=== PATIENT | male | born 1930 | race Caucasian/White ===

== ENCOUNTER 2017-02-06 07:24 | Emergency (ER) | payer MEDICARE, BC ==
--- NOTE | 2017-02-06 07:50 | EDM.PDOC ---
<Holli Narayan - Last Filed: 02/06/17 07:45> ED HPI GENERAL MEDICAL PROBLEM - General Stated Complaint: CAN'T URINATE Time Seen by Provider: 02/06/17 07:45 Source of Information: Reports: Patient, Family (daughter) - History of Present Illness INITIAL COMMENTS - FREE TEXT/NARRATIVE: Daughter states that he was started on torsemide last week and has been urinating frequently until last evening he started having difficulty going and then started complaining of burning with urination. During the night he wasn't able to empty his bladder at all and this morning he has pressure across the lower abdomen. No fever or chills noted during the night. No nausea or diarrhea with it. Onset: Gradual Location: Reports: Abdomen Associated Symptoms: Denies: Cough, Nausea/Vomiting, Shortness of Breath - Related Data Allergies Allergy/AdvReac Type Severity Reaction Status Date / Time No Known Allergies Allergy Verified 02/06/17 07:58 Home Meds: Home Meds Allopurinol [Zyloprim] 300 mg PO DAILY 02/06/17 [History] Atenolol 50 mg PO DAILY 02/06/17 [History] Cefuroxime [Ceftin] 250 mg PO BID #14 tablet 02/06/17 [Rx] Tamsulosin [Flomax] 0.8 cap PO DAILY 02/06/17 [History] Torsemide 20 mg PO DAILY 02/06/17 [History] atorvaSTATin [Lipitor] 10 mg PO BEDTIME 02/06/17 [History] Past Medical History Cardiovascular History: Reports: Heart Failure, Heart Murmur, High Cholesterol, Hypertension Genitourinary History: Reports: Retention, Urinary Musculoskeletal History: Reports: Gout Neurological History: Reports: CVA - Past Surgical History HEENT Surgical History: Reports: Cataract Surgery Dermatological Surgical History: Reports: Other (See Below) (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) Social & Family History - Tobacco Use Smoking Status *Q: Former Smoker - Living Situation & Occupation Living situation: Reports: , with Spouse, with Family Occupation: Retired ED ROS GENERAL - Review of Systems Review Of Systems: See Below Constitutional: Denies: Fever, Chills HEENT: Reports: No Symptoms Respiratory: Reports: No Symptoms Cardiovascular: Reports: No Symptoms GI/Abdominal: Denies: Constipation, Diarrhea, Nausea : Reports: Dysuria, Pain, Urinary Retention Musculoskeletal: Reports: No Symptoms Skin: Denies: Rash Neurological: Reports: No Symptoms ED EXAM, RENAL/ - Physical Exam Exam: See Below Exam Limited By: No Limitations General Appearance: Alert, WD/WN, No Apparent Distress Ears: Normal External Exam, Normal Canal Nose: Normal Inspection Throat/Mouth: Normal Inspection, Normal Oropharynx, No Airway Compromise Head: Atraumatic, Normocephalic Neck: Normal Inspection, Supple, Non-Tender, Full Range of Motion Respiratory/Chest: No Respiratory Distress, Lungs Clear, Normal Breath Sounds Cardiovascular: Regular Rate, Rhythm, No Edema, Systolic Murmur GI/Abdominal: Normal Bowel Sounds, Soft, Non-Tender, No Organomegaly Extremities: Normal Inspection, Normal Range of Motion, Non-Tender, No Pedal Edema, Normal Capillary Refill Neurological: Alert, Oriented Skin Exam: Warm, Dry, Intact Course - Vital Signs Last Recorded V/S: Last Vital Signs Temp 98.3 F 02/06/17 07:30 Pulse 77 02/06/17 07:30 Resp 20 02/06/17 07:30 BP 156/92 H 02/06/17 07:30 Pulse Ox 96 02/06/17 07:30 - Orders/Labs/Meds Labs: Laboratory Tests 02/06/17 02/06/17 02/06/17 Range/Units 07:55 07:55 08:12 WBC 12.6 H (5.0-10.0) 10^3/uL RBC 4.85 (4.50-6.00) 10^6/uL Hgb 15.1 (14.0-18.0) g/dL Hct 46.1 (40.0-54.0) % MCV 95.1 H (82.0-94.0) fL MCH 31.1 (27.0-32.0) pg MCHC 32.8 L (33.0-38.0) g/dL RDW Coeff of Alicia 13.8 (11.0-15.0) % Plt Count 217 (150-400) 10^3/uL Neut % (Auto) 59.6 (35-85) % Lymph % (Auto) 29.3 (10-55) % [place] % (Auto) 9.7 (0-16) % Eos % (Auto) 1.2 (0-5) % Baso % (Auto) 0.2 (0-3) % Neut # (Auto) 7.49 H (1.80-7.00) 10^3/uL Lymph # (Auto) 3.68 (1.00-4.80) 10^3/uL [place] # (Auto) 1.22 H (0.00-0.80) 10^3/uL Eos # (Auto) 0.15 (0.00-0.45) 10^3/uL Baso # (Auto) 0.03 10^3/uL Sodium 144 (136-145) mEq/L Potassium 3.7 (3.5-5.0) mEq/L Chloride 106 (98-106) mEq/L Carbon Dioxide 28 (21-32) mmol/L BUN 29 H (7-18) mg/dL Creatinine 0.9 (0.7-1.3) mg/dL Est Cr Clr Drug Dosing TNP Estimated GFR (MDRD) > 60 (>=60) mL/min Glucose 101 H (75-99) mg/dL Calcium 8.9 (8.4-10.1) mg/dL Urine Color Yellow (YELLOW) Urine Appearance Clear (CLEAR) Urine pH 7.0 (4.5-8.0) Ur Specific [place] 1.015 (1.003-1.020) Urine Protein Negative (NEGATIVE) mg/dL Urine Glucose (UA) Negative (NEGATIVE) mg/dL Urine Ketones Negative (NEGATIVE) mg/dL Urine Occult Blood Moderate H (NEGATIVE) Urine Nitrite Negative (NEGATIVE) Urine Bilirubin Negative (NEGATIVE) Urine Urobilinogen 0.2 (0.2-1.0) EU/dL Ur Leukocyte Esterase Negative (NEGATIVE) Urine RBC Not seen (0-5) /HPF Urine WBC Not seen (0-5) /HPF Departure - Departure Disposition: Home, Self-Care 01 Clinical Impression: Acute urinary retention - Discharge Information Prescriptions: Cefuroxime [Ceftin] 250 mg PO BID #14 tablet Instructions: Urinary Tract Infection, Adult, [id number], Choe Catheter Care , Adult Additional Instructions: 1) Ceftin 250mg BID for 7 days. 2) Renal/bladder ultrasound 3) Continue with Torsemide as discussed 4) Standing order in place for indwelling catheter if happens again. 4) Return if any concerns 5) Recheck appointment in clinic next week, nurse to schedule. <Sylvain,Jacek D - Last Filed: 02/06/17 09:31> Course - Re-Assessments/Exams Free Text/Narrative Re-Assessment/Exam: 02/06/17 09:20 Holli handed patient off to myself d/t coming off of call. Laboratory work was back with mild elevated WBC. Blood in urine noted as well. Consulted with Dr. Juarez and he evaluated Kanu today. Advised he needs to go home on Ceftin 250mg twice a day for 7 days. Will discharge at this time. Renal/bladder ultrasound to be scheduled. Will have follow up appointment with Dr. Juarez next week. Advised returning sooner if any concerns. Departure - Departure Time of Disposition: 09:26 Condition: good - Problem List & Annotations (1) Acute urinary retention SNOMED Code(s): 756602787 Code(s): R33.8 - OTHER RETENTION OF URINE Status: Acute - Problem List Review Problem List Initiated/Reviewed/Updated: Yes - Assessment/Plan Plan: Will discharge home at this time. Dr. Juarez evaluated and will follow up in 1 week. Renal/bladder ultrasound to be scheduled. Nurse will give appointment date and time. Ceftin 250mg BID for 7 days. Advised to return sooner if any concerns.
[2017-02-06 08:12] LABS: CHLORIDE,CL 106 mEq/L (98-106); SODIUM,NA 144 mEq/L (136-145)
[2017-02-06 08:19] VITALS: BP 156/92
== END 2017-02-06 09:40 | disposition home or self-care (01) ==
LOC: CC.ED 07:24
DX: R33.9 Retention of urine, unspecified (principal); I11.0 Hypertensive heart disease with heart failure; I50.9 Heart failure, unspecified; E78.00 Pure hypercholesterolemia, unspecified; Z87.891 Personal history of nicotine dependence; Z79.899 Other long term (current) drug therapy
CPT/HCPCS: 36415; 51701; 51702; 80048; 81001; 85025; 99283